=== PATIENT | male | born 1980 | race Two or more races ===

== ENCOUNTER 2025-03-10 06:47 | Emergency (ER) | payer MEDICAID, OTHER ==
[~2025-03-10] VITALS: Ht 170.2 cm; Wt 81.6 kg
[2025-03-10 07:07] VITALS: TEMP 98
[2025-03-10] MEDS ORDERED: PRED20TA PO (07:28)
[2025-03-10] MEDS ORDERED: VALA100026 PO (07:28)
[2025-03-10] MEDS ORDERED: POLY15DR31 LEFTEYE (07:28)
[2025-03-10 07:39] VITALS: BP 141/90; O2SAT 97
== END 2025-03-10 07:38 | disposition home or self-care (01) ==
LOC: ER 06:51
DX: G51.0 Bell's palsy (principal); G50.0 Trigeminal neuralgia